=== PATIENT | female | born 1965 | race American Indian/Alaskan Native ===

== ENCOUNTER 2016-05-04 06:08 | Day surgery (SDC) | payer OTHER ==
[2016-05-04] MEDS ORDERED: NACL 0.9% 1000 ML 1,000 ML ONE (06:51)
[2016-05-04] MEDS ORDERED: DIPRIVAN 10 MG/ML IV ONE ×2 (07:03)
[2016-05-04] MEDS ORDERED: WATER FOR IRRIG STERILE ONE (07:06)
--- NOTE | 2016-05-04 07:35 | Anesthesia Consultation ---
Anesthesia Consult and Med Hx Date of service: 05/04/16 - Airway Anesthetic Teeth Evaluation: Good (braces upper and lower) ROM Head & Neck: Adequate Mental/Hyoid Distance: Adequate Mallampati Class: Class II Intubation Access Assessment: Probably Good - Pulmonary Exam CTA: Yes - Cardiac Exam Cardiac Exam: RRR - Pre-Operative Health Status ASA Pre-Surgery Classification: ASA2 Proposed Anesthetic Plan: MAC - Pulmonary Hx Smoking: No - Cardiovascular System Hx Hypertension: Yes - Central Nervous System Hx Neuromuscular Disorder: No - Gastrointestinal Hx Gastroesophageal Reflux Disease: Yes - Endocrine Hx Insulin Dependent Diabetes: No - Hematic Hx Anemia: Yes Hx Sickle Cell Disease: No - Other Systems Hx Alcohol Use: No Hx Substance Use: No Hx Cancer: No Hx Obesity: No
--- NOTE | 2016-05-04 07:36 | Anesthesia Day of Surgery ---
Anesthesia Day of Surgery - Day of Surgery Patient Examined: Yes Patient H&P Reviewed: Yes Patient is NPO: Yes
[2016-05-04] MEDS ORDERED: NACL 0.9% 1000 ML 1,000 ML IV SCH (08:00)
--- NOTE | 2016-05-04 08:50 | Short Stay Summary ---
Short Stay Documentation - Allergies and Medications Current Medications: Allergies No Known Allergies Allergy (Verified 05/01/16 13:03) Home Medications Medication Instructions Recorded Confirmed Last Taken Type Hydrochlorothiazide 25 mg PO DAILY 05/03/16 05/04/16 05/04/16 04:00 History Omeprazole 20 mg PO DAILY 05/03/16 05/03/16 05/03/16 History amLODIPine 5 mg PO DAILY 05/03/16 05/03/16 05/03/16 History Active Medications Sodium Chloride (Nacl 0.9% 1000 Ml) 1,000 mls @ 75 mls/hr IV DIRECT SANA Last Admin: 05/04/16 07:25 Dose: 75 mls/hr - Brief post op/procedure progress note Date of procedure: 05/04/16 Pre-op diagnosis: 1. Colon cancer screening Post-op diagnosis: same (1. Diverticulosis coli 2. Internal hemorrhoids) Procedure: Colonoscopy Anesthesia: MAC Findings: As above Surgeon: EVAN BOSS Estimated blood loss: none Pathology: none Condition: stable - Disposition Condition at discharge: Stable Disposition: DISCHARGED TO HOME OR SELFCARE Short Stay Discharge Plan Activity: no restrictions Weight Bearing Status: Full Weight Bearing Diet: regular Follow up with: MARGOTH CARDOSO MD [Primary Care Provider] - 7 Days
[2016-05-04 09:13] VITALS: BP 148/78
--- NOTE | 2016-05-04 10:33 | Post Anesthesia Evaluation ---
- Post Anesthesia Evaluation Patient Participated: Yes Airway Patent: Yes Stable Respiratory Function: Yes Nausea/Vomiting: No Temp > 96.8F: Yes Pain Manageable: Yes Adequeate Hydration: Yes Anesthesia Complications: No Block Receding Appropriately: Not Applicable Patient on Ventilator: No
== END 2016-05-04 06:09 | disposition home or self-care (01) ==
LOC: GIO 06:08
PROVIDERS: ATTEND Internal Medicine Gastroenterology
DX: K64.0 First degree hemorrhoids (principal); K57.30 Diverticulosis of large intestine without perforation or abscess without bleeding; I10 Essential (primary) hypertension; K21.9 Gastro-esophageal reflux disease without esophagitis
CPT/HCPCS: 45378; J2704; J7030

== ENCOUNTER 2019-01-27 12:58 | Outpatient (CLI) | payer BC ==
--- NOTE | 2019-01-28 14:13 | Mammography Report ---
DIGITAL SCREENING MAMMOGRAM WITH CAD, 01/27/2019 INDICATION: Routine screening mammography. TECHNIQUE: Digital bilateral 2D mammography was obtained in the craniocaudal and mediolateral obliq ue projections. This examination was interpreted with the benefit of Computer-Aided Detection analysi s. COMPARISON: 02/07/2016 FINDINGS: Breast Density: The breasts are heterogeneously dense, which may obscure small masses. There is no evidence of dominant mass, suspicious calcifications or architectural distortion in eithe r breast. IMPRESSION: No mammographic evidence of malignancy. Follow up recommendation: Routine yearly BI-RADS Category 1: Negative. A "normal" or negative report should not discourage follow up or biopsy of a clinically significant f inding. A written summary of these findings will be mailed to the patient. The patient will be entered into a mammography reporting system which will generate a reminder letter for the patient's next appointmen t at the appropriate interval. [employer] recommends yearly mammograms starting at age 40 and continuing as l joe as a woman is in good health. Breast MRI is recommended for women with an approximate 20-25% or greater lifetime risk of breast cancer, including women with a strong family history of breast or ova flaquito cancer or who have been treated for Hodgkin's disease. Signer Name: Satya Gamboa MD Signed: 01/28/2019 2:08 PM Workstation Name: [id number]
== END 2019-01-27 12:59 | disposition home or self-care (01) ==
LOC: SPVWC 12:58
PROVIDERS: ATTEND Physician Assistant
DX: Z12.31 Encounter for screening mammogram for malignant neoplasm of breast (principal)
CPT/HCPCS: 77067